=== PATIENT | male | born 1960 | race Caucasian/White ===

== ENCOUNTER 2021-08-05 18:02 | Emergency (ER) | payer SELFPAY ==
[~2021-08-05 18:02] MED LIST: LACTINEX1 EACH PO; LEVAQUIN750 MG PO; LOMOTIL1 EACH PO; MELATONIN10 MG PO; METAMUCIL1 DOSE PO; MOTRIN600 MG PO; NORCO 5-325 TA1 EACH PO; NORVASC5 MG PO; PERCOCET 7.5/321 TAB PO; PRILOSEC20 MG PO
[2021-08-05 18:48] LABS: BASOPHIL 0.5 % (0-2); EOSINOPHIL 1.4 % (0-5); HCT 46.7 % (42.0-52.0); HGB 15.6 g/dl (13.2-18.0); LYMPHOCYTE 13.8 % (15-48); MCH 30.1 pg (25.0-31.0); MCHC 33.4 g/dL (32.0-36.0); MCV 90.2 fL (78.0-100.0); MONOCYTE 8.9 % (0-12); MPV 9.6 fL (6.0-9.5); NEUTROPHIL 75.1 % (41-80); NRBC 0; PLT 252 K/uL (150-400); RBC 5.18 M/uL (4.70-6.00); RDW 13.1 % (11.5-14.0); WBC 9.7 K/uL (4.0-10.5)
[2021-08-05 18:52] LABS: BILIRUBIN NEGATIVE (NEGATIVE); BLOOD NEGATIVE Ery/uL (NEGATIVE); CLARITY CLEAR (CLEAR); COLOR YELLOW (YELLOW); GLUCOSE (U) NORMAL (NORMAL); LEUKOCYTES NEGATIVE Leu/uL (NEGATIVE); NITRITE NEGATIVE (NEGATIVE); PROTEIN 2+ mg/dL (NEGATIVE); SPECIFIC GRAVITY >=1.030 (1.001-1.030); UROBILINOGEN 0.2 mg/dL (0.2-1.0)
[2021-08-05 19:19] LABS: BACTERIA 1+; MUCOUS TRACE
[2021-08-05 19:23] LABS: ALBUMIN 4.4 g/dL (3.4-5.0); BILIRUBIN - TOTAL 0.8 mg/dL (0.2-1.0); CREATININE 0.8 mg/dL (0.67-1.17); TOTAL PROTEIN 8.4 g/dL (6.4-8.2)
== END 2021-08-05 21:50 | disposition home or self-care (01) ==
LOC: FER 18:02
PROVIDERS: Physician Assistant
DX: R10.31 Right lower quadrant pain (principal); R10.32 Left lower quadrant pain; I10 Essential (primary) hypertension; Z28.310 Unvaccinated for COVID-19
CPT/HCPCS: 36415; 80053; 81001; 83690; 85025; J2270; J2405; Q9967